=== PATIENT | female | born 1955 | race Caucasian/White ===

== ENCOUNTER 2017-09-08 11:15 | Outpatient (CLI) | payer BC | END 2017-09-08 11:16 | disposition home or self-care (01) | LOC: LAB.WCP 11:15 | PROVIDERS: ATTEND Physician Assistant Medical | DX: R39.15 Urgency of urination (principal) | CPT/HCPCS: 87086 ==

== ENCOUNTER 2017-09-09 10:33 | Outpatient (CLI) | payer BC ==
[2017-09-09 11:05] LABS: BASOPHILS # (AUTO) 0.1 10^3/uL (0.0-0.1); BASOPHILS % (AUTO) 1.4 %; EOSINOPHILS # (AUTO) 0.1 10^3/uL (0.0-0.7); EOSINOPHILS % (AUTO) 2.7 %; HCT - HEMATOCRIT 40.6 % (37.0-47.0); HGB - HEMOGLOBIN 13.8 g/dL (12.0-16.0); LYMPHOCYTES # (AUTO) 1.6 10^3/uL (1.5-3.5); LYMPHOCYTES % (AUTO) 36.9 %; MEAN CORPUSCULAR HEMOGLOBIN 31.3 pg (27.0-31.0); MEAN CORPUSCULAR HGB CONC 34.1 g/dL (32.0-36.0); MEAN PLATELET VOLUME 7.5 fL (7.9-10.8); MONOCYTES # (AUTO) 0.4 10^3/uL (0.0-1.0); MONOCYTES % (AUTO) 10.1 %; NEUTROPHILS # (AUTO) 2.2 10^3/uL (1.5-6.6); NEUTROPHILS % (AUTO) 48.9 %; NUCLEATED RED BLOOD CELLS AUTO 0.1 /100WBC; RED BLOOD COUNT 4.41 10^6/uL (4.20-5.40); UNCORRECTED WHITE BLOOD COUNT 4.4 x10^3/uL; WHITE BLOOD COUNT 4.4 x10^3/uL (4.8-10.8)
[2017-09-09 11:25] LABS: ALBUMIN/GLOBULIN RATIO 1.4 (1.0-2.2); BILIRUBIN,TOTAL 0.6 mg/dL (0.2-1.0); BUN - BLOOD UREA NITROGEN 12 mg/dL (6-20); CALCIUM 9.6 mg/dL (8.5-10.3); CARBON DIOXIDE - CO2 27 mmol/L (21-32); CHLORIDE 103 mmol/L (101-111); CHOLESTEROL 213 mg/dL; CREATININE 0.8 mg/dL (0.4-1.0); GFR - MDRD 73 (>89); GLUCOSE 104 mg/dL (70-100); HDL CHOLESTEROL 70 mg/dL; LDL/HDL RATIO 1.8 (<4.4); SODIUM 139 mmol/L (135-145); TOTAL PROTEIN 7.6 g/dL (6.7-8.2); TRIGLYCERIDES 84 mg/dL; VLDL CHOLESTEROL 17 mg/dL
== END 2017-09-09 10:34 | disposition home or self-care (01) ==
LOC: LAB 10:33
PROVIDERS: ATTEND Physician Assistant Medical
DX: Z00.00 Encounter for general adult medical examination without abnormal findings (principal)
CPT/HCPCS: 36415; 80053; 80061; 84443; 85025

== ENCOUNTER 2017-10-20 12:37 | Outpatient (CLI) | payer BC ==
--- NOTE | 2017-10-21 12:41 | Mammography Report ---
DIGITAL SCREENING MAMMOGRAM: 10/20/2017 CLINICAL INDICATION: A 62-year-old for screening. COMPARISON: 07/2016, 04/2011, 05/2009 TECHNIQUE: Routine CC and MLO projections were obtained of the breasts. FINDINGS: Scattered fibroglandular tissue is present within the breasts. There are no dominant roger s, suspicious microcalcifications, or secondary signs of malignancy. In comparison to the previous st udies, there are no significant changes. ASSESSMENT: NO MAMMOGRAPHIC EVIDENCE OF MALIGNANCY. NO SIGNIFICANT INTERVAL CHANGES. RECOMMENDATION: Screening mammography is recommended annually. BIRADS category 1 - negative. STANDARD QUALIFYING STATEMENTS 1. This examination was reviewed with the aid of Computed-Aided Detection (CAD). 2. A negative or benign imaging report should not delay biopsy if clinically suspicious findings are present. Consider surgical consultation if warranted. More than 5% of cancers are not identified by i maging. 3. Dense breasts may obscure an underlying neoplasm. JOB #: [id number] EXT JOB #:[id number]
== END 2017-10-20 12:38 | disposition home or self-care (01) ==
LOC: DI 12:37
PROVIDERS: ATTEND Family Medicine
DX: Z12.31 Encounter for screening mammogram for malignant neoplasm of breast (principal)
CPT/HCPCS: 77067

== ENCOUNTER 2020-05-23 10:30 | Outpatient (CLI) | payer MEDICARE, OTHER | END 2020-05-23 23:59 | disposition home or self-care (01) | LOC: LAB.R 10:30 | PROVIDERS: ATTEND Family Medicine | DX: R39.9 Unspecified symptoms and signs involving the genitourinary system (principal) | CPT/HCPCS: 87086 ==

== ENCOUNTER 2020-06-05 08:00 | Outpatient (CLI) | payer MEDICARE, OTHER ==
[2020-06-05 18:35] LABS: BILIRUBIN,URINE NEGATIVE (NEGATIVE); GLUCOSE, URINE (UA) NEGATIVE (NEGATIVE); KETONES,URINE (UA) NEGATIVE (NEGATIVE); LEUKOCYTE ESTERASE, URINE NEGATIVE (NEGATIVE); NITRITE,URINE NEGATIVE (NEGATIVE); OCCULT BLOOD,URINE NEGATIVE (NEGATIVE); PROTEIN,URINE NEGATIVE (NEGATIVE); UROBILINOGEN,URINE 0.2 (NORMAL) E.U./dL (NORMAL)
[2020-06-05 18:45] LABS: BACTERIA,URINE None Seen /HPF (None Seen); CLARITY,URINE CLEAR (CLEAR); RBC,URINE None Seen /HPF (0-5); SQUAMOUS EPITHELIAL CELL,UR RARE Squamous (<= Few)
== END 2020-06-05 23:59 | disposition home or self-care (01) ==
LOC: LAB.WCP 08:00
PROVIDERS: ATTEND Physician Assistant Medical
DX: R39.9 Unspecified symptoms and signs involving the genitourinary system (principal); N39.0 Urinary tract infection, site not specified
CPT/HCPCS: 81001; 87086

== ENCOUNTER 2020-06-07 08:05 | Outpatient (CLI) | payer MEDICARE, OTHER ==
[2020-06-07 12:38] LABS: BILIRUBIN,URINE NEGATIVE (NEGATIVE); GLUCOSE, URINE (UA) NEGATIVE (NEGATIVE); KETONES,URINE (UA) NEGATIVE (NEGATIVE); LEUKOCYTE ESTERASE, URINE NEGATIVE (NEGATIVE); NITRITE,URINE NEGATIVE (NEGATIVE); OCCULT BLOOD,URINE NEGATIVE (NEGATIVE); PROTEIN,URINE NEGATIVE (NEGATIVE); UROBILINOGEN,URINE 0.2 (NORMAL) E.U./dL (NORMAL)
[2020-06-07 13:07] LABS: CLARITY,URINE CLEAR (CLEAR)
== END 2020-06-07 23:59 | disposition home or self-care (01) ==
LOC: LAB.WCP 08:05
PROVIDERS: ATTEND Family Medicine
DX: R39.9 Unspecified symptoms and signs involving the genitourinary system (principal); R35.0 Frequency of micturition
CPT/HCPCS: 81001; 81003; 87086

== ENCOUNTER 2020-07-12 08:00 | Outpatient (CLI) | payer MEDICARE, OTHER ==
[2020-07-12 15:24] LABS: BILIRUBIN,URINE NEGATIVE (NEGATIVE); GLUCOSE, URINE (UA) NEGATIVE (NEGATIVE); KETONES,URINE (UA) NEGATIVE (NEGATIVE); LEUKOCYTE ESTERASE, URINE NEGATIVE (NEGATIVE); NITRITE,URINE NEGATIVE (NEGATIVE); OCCULT BLOOD,URINE NEGATIVE (NEGATIVE); PROTEIN,URINE NEGATIVE (NEGATIVE); UROBILINOGEN,URINE 0.2 (NORMAL) E.U./dL (NORMAL)
[2020-07-12 15:36] LABS: CLARITY,URINE CLEAR (CLEAR)
[2020-07-12 15:39] LABS: BACTERIA,URINE None Seen /HPF (None Seen); RBC,URINE None Seen /HPF (0-5); SQUAMOUS EPITHELIAL CELL,UR RARE Squamous (<= Few)
== END 2020-07-12 23:59 | disposition home or self-care (01) ==
LOC: LAB.R 08:00
PROVIDERS: ATTEND Physician Assistant
DX: R39.9 Unspecified symptoms and signs involving the genitourinary system (principal); R35.0 Frequency of micturition
CPT/HCPCS: 81001; 87086

== ENCOUNTER 2020-07-12 09:49 | Outpatient (CLI) | payer MEDICARE, OTHER ==
[2020-07-12 10:09] LABS: BASOPHILS # (AUTO) 0.1 10^3/uL (0.0-0.1); BASOPHILS % (AUTO) 1.7 %; EOSINOPHILS # (AUTO) 0.2 10^3/uL (0.0-0.7); HGB - HEMOGLOBIN 10.7 g/dL (12.0-16.0); LYMPHOCYTES # (AUTO) 1.5 10^3/uL (1.5-3.5); LYMPHOCYTES % (AUTO) 37.9 %; MEAN CORPUSCULAR HEMOGLOBIN 23.5 pg (27.0-31.0); MEAN CORPUSCULAR HGB CONC 29.6 g/dL (32.0-36.0); MEAN CORPUSCULAR VOLUME 79.6 fL (81.0-99.0); MEAN PLATELET VOLUME 9.8 fL (7.9-10.8); MONOCYTES # (AUTO) 0.3 10^3/uL (0.0-1.0); NEUTROPHILS # (AUTO) 1.9 10^3/uL (1.5-6.6); NEUTROPHILS % (AUTO) 48.4 %; PLT - PLATELET COUNT 240 10^3/uL (130-450); RED BLOOD COUNT 4.55 10^6/uL (4.20-5.40); RED CELL DISTRIBUTION WIDTH 15.2 % (12.0-15.0)
[2020-07-12 10:26] LABS: ALBUMIN 4.5 g/dL (3.2-5.5); ALBUMIN/GLOBULIN RATIO 1.3 (1.0-2.2); ALKALINE PHOSPHATASE 64 IU/L (42-121); ALT ALANINE AMINOTRANSFERASE 17 IU/L (10-60); AST ASPARTATE AMINOTRANSFERASE 23 IU/L (10-42); BILIRUBIN,TOTAL 0.4 mg/dL (0.2-1.0); BUN - BLOOD UREA NITROGEN 21 mg/dL (6-20); CARBON DIOXIDE - CO2 25 mmol/L (21-32); CHLORIDE 103 mmol/L (101-111); CHOL/HDL RATIO 3.4 (<4.4); CHOLESTEROL 197 mg/dL; CREATININE 0.9 mg/dL (0.4-1.0); GLUCOSE 102 mg/dL (70-100); HDL CHOLESTEROL 58 mg/dL; LDL CHOLESTEROL,CALCULATED 121 mg/dL; LDL/HDL RATIO 2.1 (<4.4); SODIUM 138 mmol/L (135-145); TOTAL PROTEIN 7.9 g/dL (6.7-8.2); VLDL CHOLESTEROL 18 mg/dL
[2020-07-12 10:32] LABS: HB2 TOTAL 10.9 g/dL; HEMOGLOBIN A1C 0.47 g/dL; HEMOGLOBIN A1C % 6.1 % (4.6-6.2)
== END 2020-07-12 09:50 | disposition home or self-care (01) ==
LOC: LAB 09:49
PROVIDERS: ATTEND Physician Assistant
DX: E03.9 Hypothyroidism, unspecified (principal); Z79.899 Other long term (current) drug therapy; R39.9 Unspecified symptoms and signs involving the genitourinary system; R35.0 Frequency of micturition
CPT/HCPCS: 36415; 80053; 80061; 81001; 83036; 83721; 84443; 85025; 87086

== ENCOUNTER 2020-07-19 16:14 | Outpatient (CLI) | payer MEDICARE, OTHER ==
[2020-07-19 18:44] LABS: BASOPHILS % (AUTO) 0.6 %; EOSINOPHILS % (AUTO) 0.5 %; HGB - HEMOGLOBIN 9.8 g/dL (12.0-16.0); LYMPHOCYTES # (AUTO) 1.8 10^3/uL (1.5-3.5); LYMPHOCYTES % (AUTO) 27.7 %; MEAN CORPUSCULAR HEMOGLOBIN 23.2 pg (27.0-31.0); MEAN CORPUSCULAR HGB CONC 29.6 g/dL (32.0-36.0); MEAN CORPUSCULAR VOLUME 78.3 fL (81.0-99.0); MEAN PLATELET VOLUME 10.1 fL (7.9-10.8); MONOCYTES # (AUTO) 0.5 10^3/uL (0.0-1.0); MONOCYTES % (AUTO) 7.3 %; NEUTROPHILS # (AUTO) 4.1 10^3/uL (1.5-6.6); NEUTROPHILS % (AUTO) 63.6 %; PLT - PLATELET COUNT 283 10^3/uL (130-450); RED BLOOD COUNT 4.23 10^6/uL (4.20-5.40); RED CELL DISTRIBUTION WIDTH 15.3 % (12.0-15.0); WHITE BLOOD COUNT 6.5 x10^3/uL (4.8-10.8)
[2020-07-19 19:02] LABS: % IRON SATURATION 3 % (20-50); IRON 13 ug/dL (28-170); TOTAL IRON BINDING CAPACITY 493 ug/dL (250-450); TRANSFERRIN 352 mg/dL (192-382)
[2020-07-19 19:14] LABS: FERRITIN 5.6 ng/mL (11.0-306.8)
== END 2020-07-19 23:59 | disposition home or self-care (01) ==
LOC: LAB.WCP 16:14
PROVIDERS: ATTEND Nurse Practitioner Family
DX: D64.9 Anemia, unspecified (principal)
CPT/HCPCS: 36415; 82607; 82728; 82746; 83540; 84466; 85025; 85045

== ENCOUNTER 2020-12-29 16:33 | Outpatient (CLI) | payer MEDICARE, OTHER | END 2020-12-29 16:34 | disposition home or self-care (01) | LOC: COV 16:33 | PROVIDERS: ATTEND Family Medicine | DX: R07.0 Pain in throat (principal); R19.7 Diarrhea, unspecified; R09.81 Nasal congestion; Z20.822 Contact with and (suspected) exposure to COVID-19 ==

== ENCOUNTER 2020-12-30 06:21 | Emergency (ER) | payer MEDICARE, OTHER ==
[2020-12-30 06:45] LABS: RAPID STREP SCREEN Negative (Negative)
[2020-12-30] MEDS ORDERED: DEXAMETHASONE 10 MG/ML VIAL PO STA (07:28)
[2020-12-30] MEDS ORDERED: CHERRY SYRUP 10 ML UDC PO ONE (07:28)
--- NOTE | 2020-12-30 07:31 | ED Physician Documentation ---
PD HPI HEENT - Stated complaint Stated Complaint: THROAT PX/SOA - Chief complaint Chief Complaint: Heent - History obtained from History obtained from: Patient - History of Present Illness Timing - onset: How many days ago (5) Timing - duration: Days (5) Timing - details: Gradual onset, Still present Location: Right ear, Throat Improves: Medication Worsens: Swalllowing Associated symptoms: Congestion, Rhinorrhea, Swollen nodes, Cough Similar symptoms before: Diagnosis (strep) Recently seen: Other (had covid test done yesterday) - Additional information Additional information: 65-year-old female with a history of thyroid disease and anxiety has developed a sore throat muffled hearing in the right ear with some pain associated with it fullness and she has now developed a cough as well. She has had a prior incident of hearing loss in the right ear resulting from the use of a beta- sera and had rescue of her hearing with high-dose steroid. The patient was concerned about the possibility of Covid and she had a Covid test done yesterday does not know the result. She indicates that she has been very conscientious about masking when she is out and she does not going to public places. She is worried about the swimming pool she was in an hotel up in [place] where she had the swimming pool with her daughters and a family had been in there previously. Review of Systems Constitutional: denies: Fever Eyes: denies: Decreased vision Ears: reports: Ear pain, Tinnitus/ringing. denies: Drainage/discharge Nose: reports: Rhinorrhea / runny nose, Congestion Throat: reports: Sore throat Cardiac: denies: Chest pain / pressure, Palpitations Respiratory: reports: Cough. 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 AD TAKER: None : None HEENT: None Psych: Anxiety Musculoskeletal: Chronic back pain Derm: None - Past Surgical History Past Surgical History: Yes /TELEPHONE AD TAKER: Hysterectomy - Present Medications Home Medications: Ambulatory Orders Medication Instructions Recorded Confirmed Amox/Clav 875/125 [Augmentin] 1 each PO Q12H #20 tab 02/06/21 - Allergies Allergies/Adverse Reactions: Allergies Allergy/AdvReac Type Severity Reaction Status Date / Time Beta-Blockers Allergy Severe lost Verified 04/16/13 19:39 (Beta-Adrenergic Bloc hearing Sulfa (Sulfonamide Allergy Severe Hives Verified 04/16/13 19:38 Antibiotics) - Social History Does the pt smoke?: No Smoking Status: Never smoker Does the pt drink ETOH?: Yes Does the pt have substance abuse?: No - Immunizations Immunizations are current?: Yes - POLST Patient has POLST: No PD ED PE NORMAL - Vitals Vital signs reviewed: Yes (Tachycardic and hypertensive) - General General: Alert and oriented X 3, No acute distress, Well developed/nourished - HEENT HEENT: Atraumatic, PERRL, EOMI, Other (The right TM is mildly erythematous with distortion of the landmarks the left is clear the pharynx is with 1+ tonsils with crypts with minimal exudate.) - Neck Neck: Supple, no meningeal sign, No bony TTP - Cardiac Cardiac: RRR, No murmur - Respiratory Respiratory: No respiratory distress, Clear bilaterally - Abdomen Abdomen: Soft, Non tender - Back Back: No CVA TTP, No spinal TTP - Derm Derm: Normal color, Warm and dry, No rash - Extremities Extremities: No deformity, No edema - Neuro Neuro: Alert and oriented X 3, office support 2-12 intact, No motor deficit, No sensory deficit, Normal speech Eye Opening: Spontaneous Motor: Obeys Commands Verbal: Oriented GCS Score: 15 - Psych Psych: Normal mood, Normal affect Results - Vitals Vitals: Vital Signs - 24 hr 12/30/20 12/30/20 06:29 06:47 Temperature 36.9 C Heart Rate 110 H Respiratory 18 16 Rate Blood Pressure 162/119 H O2 Saturation 98 Oxygen O2 Source Room air - Labs Labs: Laboratory Tests 12/30/20 06:30 Group A Strep Rapid Negative PD MEDICAL DECISION MAKING - ED course Complexity details: considered differential, d/w patient ED course: 65-year-old female with a cough and sore throat is a negative rapid strep she does have cryptic exudative tonsils and a right otitis. She is administered dexamethasone 10 mg orally here in the emergency department we will place her on some Augmentin as an outpatient. Her Covid test is pending. Departure - Departure Disposition: 01 Home, Self Care Clinical Impression: Tonsillitis Otitis media Qualifiers: Otitis media type: suppurative Chronicity: acute Laterality: right Recurrence: not specified as recurrent Spontaneous tympanic membrane rupture: without spontaneous rupture Qualified Code(s): H66.001 - Acute suppurative otitis media without spontaneous rupture of ear drum, right ear Condition: Stable Instructions: ED Otitis Media Acute Adult Follow-Up: Angelica Yanes ARNP, NATIONAL [employer]ION RECRUITER-[facility] [Primary Care Provider] - Prescriptions: Amox/Clav 875/125 [Augmentin] 1 each PO Q12H #20 tab
[2020-12-30 07:52] VITALS: BP 136/68
== END 2020-12-30 07:52 | disposition home or self-care (01) ==
LOC: ED 06:21
DX: J03.90 Acute tonsillitis, unspecified (principal); H66.001 Acute suppurative otitis media without spontaneous rupture of ear drum, right ear
CPT/HCPCS: 87070; 87430; 99283; 99284; A9270

== ENCOUNTER 2021-01-13 13:00 | Outpatient (CLI) | payer MEDICARE, OTHER | END 2021-01-13 13:01 | disposition home or self-care (01) | LOC: LAB 13:00 | PROVIDERS: ATTEND Family Medicine | DX: Z01.84 Encounter for antibody response examination (principal); Z20.822 Contact with and (suspected) exposure to COVID-19 | CPT/HCPCS: 86769 ==

== ENCOUNTER 2021-03-29 12:07 | Outpatient (CLI) | payer MEDICARE, OTHER ==
[2021-03-29 19:08] LABS: ALBUMIN 4.4 g/dL (3.2-5.5); ALBUMIN/GLOBULIN RATIO 1.5 (1.0-2.2); BILIRUBIN,TOTAL 0.6 mg/dL (0.2-1.0); CREATININE 0.9 mg/dL (0.4-1.0); POTASSIUM 4.1 mmol/L (3.5-5.0); TOTAL PROTEIN 7.4 g/dL (6.7-8.2)
== END 2021-03-29 23:59 | disposition home or self-care (01) ==
LOC: LAB.WCP 12:07
PROVIDERS: ATTEND Family Medicine
DX: B37.0 Candidal stomatitis (principal)
CPT/HCPCS: 36415; 80053

== ENCOUNTER 2021-04-14 07:55 | Emergency (ER) | payer MEDICARE, OTHER ==
--- OUTSIDE RECORDS SUMMARY | 2021-04-14 07:59 | EXTERNAL MEDICAL SUMMARY RPT | Continuity of Care Document ---
:1955 Demographics Phone Unavailable Preferred Language Uzbek Marital Status Unknown Mu-Ism Affiliation Unknown Race Unknown Ethnic Group Unknown Author Organization [place] Address [address] [phone] Phone Care Team Providers Name Role Phone Teddy Troy Unavailable Unavailable Problems date description facility [id number] Iron deficiency anemia, unspecified [facility]
--- OUTSIDE RECORDS SUMMARY | 2021-04-14 08:18 | EXTERNAL MEDICAL SUMMARY RPT | Continuity of Care Document ---
:1955 Demographics Phone Unavailable Preferred Language Hebrew Marital Status Unknown Anabaptism Affiliation Unknown Race Unknown Ethnic Group Unknown Author Organization [place] Address [address] [phone] Phone Care Team Providers Name Role Phone Teddy Troy Unavailable Unavailable Problems date description facility [id number] Iron deficiency anemia, unspecified Is [facility]
[2021-04-14 08:38] LABS: BILIRUBIN,URINE NEGATIVE (NEGATIVE); GLUCOSE, URINE (UA) NEGATIVE (NEGATIVE); KETONES,URINE (UA) NEGATIVE (NEGATIVE); LEUKOCYTE ESTERASE, URINE TRACE (NEGATIVE); NITRITE,URINE NEGATIVE (NEGATIVE); OCCULT BLOOD,URINE NEGATIVE (NEGATIVE); PROTEIN,URINE NEGATIVE (NEGATIVE); UROBILINOGEN,URINE 0.2 (NORMAL) E.U./dL (NORMAL)
[2021-04-14 08:41] LABS: BACTERIA,URINE None Seen /HPF (None Seen); CLARITY,URINE CLEAR (CLEAR); RBC,URINE None Seen /HPF (0-5); SQUAMOUS EPITHELIAL CELL,UR RARE Squamous (<= Few); WBC,URINE 0-3 /HPF (0-5)
--- NOTE | 2021-04-14 08:43 | ED Physician Documentation ---
History of Present Illness - Stated complaint Stated Complaint: RT SIDE PX - Chief complaint Chief Complaint: General - History obtained from History obtained from: Patient - Additonal information Additional information: 65-year-old woman presents with right Lateral lower rib pain and back pain that is nonradiating gradual in onset after mowing her yard 2 days ago and bumping up and down. That night she noticed a cracking sensation to her right ribs and bruising to her right flank. Pain is mild, constant, aching, worse with cough. Nonpleuritic. No urinary symptoms. 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 : None HEENT: None Psych: Anxiety Musculoskeletal: Osteoporosis, Chronic back pain Derm: None Other Past Medical History: cervical cancer - Past Surgical History Past Surgical History: Yes /LOGISTICS PROJECT MANAGER: Hysterectomy - Present Medications Home Medications: Ambulatory Orders Medication Instructions Recorded Confirmed LORazepam [Ativan] 0.5 mg PO BID 04/14/21 04/14/21 - Allergies Allergies/Adverse Reactions: Allergies Allergy/AdvReac Type Severity Reaction Status Date / Time Beta-Blockers Allergy Severe lost Verified 04/14/21 07:57 (Beta-Adrenergic Bloc hearing Sulfa (Sulfonamide Allergy Severe Hives Verified 04/14/21 07:57 Antibiotics) cephalexin Allergy Unknown Verified 04/14/21 07:57 sulfamethoxazole Allergy Unknown Verified 04/14/21 07:57 [From Bactrim] trimethoprim [From Bactrim] Allergy Unknown Verified 04/14/21 07:57 - Social History Does the pt smoke?: No Smoking Status: Never smoker Does the pt drink ETOH?: Yes Does the pt have substance abuse?: No - Immunizations Immunizations are current?: Yes - POLST Patient has POLST: No PD ED PE NORMAL - Vitals Vital signs reviewed: Yes - General General: Alert and oriented X 3, No acute distress, Well developed/nourished - HEENT HEENT: Atraumatic, PERRL, EOMI - Neck Neck: Supple, no meningeal sign - Cardiac Cardiac: RRR - Respiratory Respiratory: No respiratory distress, Clear bilaterally - Back Back: Other (Right lateral lower rib cage and posterior rib trommel tender to palpation with 2 cm diameter area of ecchymosis) Results - Vitals Vitals: Vital Signs - 24 hr 04/14/21 07:58 Temperature 36.5 C Heart Rate 68 Respiratory 16 Rate Blood Pressure 141/85 H O2 Saturation 99 Oxygen O2 Source Room air - Labs Labs: Laboratory Tests 04/14/21 08:25 Urine Color YELLOW Urine Clarity CLEAR Urine pH 6.0 Ur Specific [place]als 1.020 Urine Protein NEGATIVE Urine Glucose (UA) NEGATIVE Urine Ketones NEGATIVE Urine Occult Blood NEGATIVE Urine Nitrite NEGATIVE Urine Bilirubin NEGATIVE Urine Urobilinogen 0.2 (NORMAL) Ur Leukocyte Esterase TRACE H Urine RBC None Seen Urine WBC 0-3 Ur Squamous Epith Cells RARE Squamous Urine Bacteria None Seen Urine Culture Comments INDICATED PD MEDICAL DECISION MAKING - ED course ED course: 65-year-old woman presents with bruise to the right rib cage after a robust round of yard work 2 days ago. She does not have apparent fracture on chest x- ray and is able to take a full deep breath and give a robust cough without difficulty. Advised patient to take NSAIDs as needed for pain. Strict return precautions given. She will follow up with her primary. Departure - Departure Disposition: 01 Home, Self Care Clinical Impression: Rib contusion, Ecchymosis Condition: Good Instructions: ED Contusion Rib Comments: You are seen in the emergency department for rib pain. You do not appear to have a break in the ribs. Please follow-up with your primary doctor this week. Take ibuprofen 600 mg as needed every 6 hours for pain.Return to emergency department if you experience any new or worsening symptoms or have other concerns
[2021-04-14] MEDS ORDERED: KETOROLAC 30 MG/ML VIAL IM STA (08:45)
--- NOTE | 2021-04-14 08:53 | XRAY Report ---
PROCEDURE: Chest 2 View X-Ray INDICATIONS: R lower lateral rib pain with bruise TECHNIQUE: 2 view(s) of the chest. COMPARISON: None. FINDINGS: Surgical changes and devices: None. Lungs and pleura: No pleural effusions or pneumothorax. Lungs are clear. Mediastinum: Mediastinal contours are normal. Heart size is normal. There is a small hiatal hernia . Bones and chest wall: The area of rib pain is marked with a BB marker. At this site, no focal rib ab normality can be seen. No suspicious bony abnormalities. Soft tissues appear unremarkable. IMPRESSION: No displaced rib fracture can be seen. No pneumothorax is seen. If clinically appropriate, a dedicated rib plain film series or dedicated CT could be considered for further evaluation. Reviewed by: Wilberto Mandujano MD on 04/14/2021 7:52 AM MT Approved by: Wilberto Mandujano MD on 04/14/2021 7:52 AM MT Station ID: [id number]
[2021-04-14 09:26] VITALS: BP 131/87
== END 2021-04-14 09:05 | disposition home or self-care (01) ==
LOC: ED 07:55
DX: S20.211A Contusion of right front wall of thorax, initial encounter (principal); X50.0XXA Overexertion from strenuous movement or load, initial encounter; Y93.H2 Activity, gardening and landscaping; Y92.096 Garden or yard of other non-institutional residence as the place of occurrence of the external cause
CPT/HCPCS: 81001; 87086; 99282; 99284

== ENCOUNTER 2021-07-11 13:33 | Outpatient (CLI) | payer MEDICARE, OTHER ==
[2021-07-11 17:57] LABS: BASOPHILS # (AUTO) 0.1 10^3/uL (0.0-0.1); BASOPHILS % (AUTO) 1.3 %; EOSINOPHILS # (AUTO) 0.2 10^3/uL (0.0-0.7); EOSINOPHILS % (AUTO) 5.3 %; HCT - HEMATOCRIT 42.2 % (37.0-47.0); HGB - HEMOGLOBIN 13.5 g/dL (12.0-16.0); LYMPHOCYTES # (AUTO) 1.4 10^3/uL (1.5-3.5); MEAN CORPUSCULAR VOLUME 96.8 fL (81.0-99.0); MEAN PLATELET VOLUME 10.1 fL (7.9-10.8); MONOCYTES # (AUTO) 0.4 10^3/uL (0.0-1.0); NEUTROPHILS # (AUTO) 1.9 10^3/uL (1.5-6.6); NEUTROPHILS % (AUTO) 48.1 %; PLT - PLATELET COUNT 224 10^3/uL (130-450); RED BLOOD COUNT 4.36 10^6/uL (4.20-5.40); RED CELL DISTRIBUTION WIDTH 12.1 % (12.0-15.0)
== END 2021-07-11 23:59 | disposition home or self-care (01) ==
LOC: LAB.WCP 13:33
PROVIDERS: ATTEND Family Medicine
DX: D64.9 Anemia, unspecified (principal)
CPT/HCPCS: 36415; 85025

== ENCOUNTER 2021-12-03 10:46 | Outpatient (CLI) | payer MEDICARE, OTHER ==
--- NOTE | 2021-12-03 15:08 | DEXA Report ---
PROCEDURE: Dexa Spine and/or Hip INDICATIONS: OSTEOPOROSIS TECHNIQUE: Dual energy x-ray absorptiometry (DXA) was performed on a [employer] System. Regions measur ed are the AP Spine, femoral neck, and if needed forearm. COMPARISON: None. FINDINGS: Lumbar Spine: Bone Mineral Density 0.820 g/cm/cm,T score -3.0, compared to -3.3 Left Hip: Bone Mineral Density 0.688 g/cm/cm,T score -2.5, compared to -2.2 Left Femoral Neck: Bone Mineral Density 0.670 g/cm/cm, T score -2.6, compared to -2.7 (T score greater or equal to -1.0: NORMAL) (T score from -1.1 to -2.4: OSTEOPENIA) (T score less than or equal to -2.5 to: OSTEOPOROSIS) Impression: 1. Osteoporosis slightly improved in the lumbar spine and femoral neck. 2. Mild progressive osteoporosis in the left hip previously osteopenic. Patients with diagnosis of osteoporosis or osteopenia should have regular bone mineral density assess ment. For those eligible for Medicare, routine testing is allowed once every 2 years. Testing frequ ency can be increased for patients who have rapidly progressing disease or for those who are receivin g medical therapy to restore bone mass. Reviewed by: Medina Cheng MD on 12/03/2021 3:07 PM PST Approved by: Medina Cheng MD on 12/03/2021 3:07 PM PST Station ID: [id number]
== END 2021-12-03 10:47 | disposition home or self-care (01) ==
LOC: DI 10:46
PROVIDERS: ATTEND Family Medicine
DX: M81.0 Age-related osteoporosis without current pathological fracture (principal)

== ENCOUNTER 2022-04-05 09:48 | Outpatient (CLI) | payer MEDICARE, OTHER ==
[2022-04-05 10:05] LABS: BASOPHILS # (AUTO) 0.1 10^3/uL (0.0-0.1); BASOPHILS % (AUTO) 1.2 %; EOSINOPHILS # (AUTO) 0.1 10^3/uL (0.0-0.7); EOSINOPHILS % (AUTO) 2.9 %; HCT - HEMATOCRIT 35.4 % (37.0-47.0); LYMPHOCYTES # (AUTO) 1.8 10^3/uL (1.5-3.5); LYMPHOCYTES % (AUTO) 43.8 %; MEAN CORPUSCULAR HEMOGLOBIN 26.4 pg (27.0-31.0); MEAN CORPUSCULAR HGB CONC 31.1 g/dL (32.0-36.0); MEAN CORPUSCULAR VOLUME 85.1 fL (81.0-99.0); MEAN PLATELET VOLUME 9.1 fL (7.9-10.8); MONOCYTES # (AUTO) 0.4 10^3/uL (0.0-1.0); MONOCYTES % (AUTO) 9.5 %; NEUTROPHILS # (AUTO) 1.8 10^3/uL (1.5-6.6); NEUTROPHILS % (AUTO) 42.4 %; PLT - PLATELET COUNT 268 10^3/uL (130-450); RED BLOOD COUNT 4.16 10^6/uL (4.20-5.40); RED CELL DISTRIBUTION WIDTH 13.6 % (12.0-15.0); WHITE BLOOD COUNT 4.2 x10^3/uL (4.8-10.8)
[2022-04-05 10:23] LABS: ALBUMIN/GLOBULIN RATIO 1.3 (1.0-2.2); BILIRUBIN,TOTAL 0.6 mg/dL (0.2-1.0); CALCIUM 9.2 mg/dL (8.5-10.3); CREATININE 0.8 mg/dL (0.4-1.0); POTASSIUM 3.5 mmol/L (3.5-5.0); TOTAL PROTEIN 7.2 g/dL (6.7-8.2)
[2022-04-05 10:35] LABS: THYROID STIMULATING HORMONE 4.13 uIU/mL (0.34-5.60)
[2022-04-05 10:41] LABS: FERRITIN 4.8 ng/mL (11.0-306.8)
== END 2022-04-05 09:49 | disposition home or self-care (01) ==
LOC: LAB 09:48
PROVIDERS: ATTEND Family Medicine
DX: D64.9 Anemia, unspecified (principal); E03.9 Hypothyroidism, unspecified
CPT/HCPCS: 36415; 80053; 82607; 82728; 83540; 84443; 84466; 85025

== ENCOUNTER 2022-04-10 08:00 | Outpatient (CLI) | payer MEDICARE, OTHER ==
[2022-04-10 13:36] LABS: FECAL OCCULT BLOOD (FIT) NEGATIVE (NEGATIVE)
== END 2022-04-10 23:59 | disposition home or self-care (01) ==
LOC: LAB.N 08:00
PROVIDERS: ATTEND Family Medicine
DX: D64.9 Anemia, unspecified (principal)
CPT/HCPCS: 82274

== ENCOUNTER 2022-08-04 18:15 | Emergency (ER) | payer MEDICARE, OTHER ==
[2022-08-04] MEDS ORDERED: ACETAMINOPHEN/CODEINE 300 MG/30 MG TABLET PO STA (19:05)
--- NOTE | 2022-08-04 19:05 | XRAY Report ---
PROCEDURE: Wrist 4 View LT INDICATIONS: Trauma TECHNIQUE: 4 views of the wrist were acquired. COMPARISON: None FINDINGS: Bones: Diffuse osteopenia. Possible nondisplaced, minimally impacted fracture of the distal left radi al metaphysis. No definite intra-articular extension. Background degenerative changes of the left wri st. Scaphoid view: Scaphoid appears intact. Scapholunate interval is maintained. Soft tissues: No suspicious soft tissue calcifications. IMPRESSION: Diffuse osteopenia. Possible minimally impacted fracture of the distal left radial metaphysis. No def inite intra-articular extension. Recommend immobilization and repeat imaging in 10-14 days. Reviewed by: Josesito Marinelli MD on 08/04/2022 7:03 PM PDT Approved by: Josesito Marinelli MD on 08/04/2022 7:03 PM PDT Station ID: [id number]
--- NOTE | 2022-08-04 19:07 | ED Physician Documentation ---
PD HPI UPPER EXT INJURY - Stated complaint Stated Complaint: WRIST INJURY - Chief complaint Chief Complaint: Trauma Ext - History obtained from History obtained from: Patient - Additonal information Additional information: Right-handed woman was walking on wet logs and slipped and fell on an outstretched which left wrist. She has an isolated left wrist injury. Pain is severe. No other injuries. 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: Other : None HEENT: None Psych: Anxiety Musculoskeletal: Osteoporosis, Chronic back pain Derm: None - Past Surgical History Past Surgical History: Yes /CAR PUSHER: Hysterectomy - Present Medications Home Medications: Ambulatory Orders Medication Instructions Recorded Confirmed LORazepam [Ativan] 0.5 mg PO BID 04/14/21 08/04/22 Acetaminophen with Codeine 1 tab ORAL Q6HR PRN 08/04/22 08/04/22 [Acetaminophen-Cod #3 Tablet] Acetaminophen/Cod 300/30 [Tylenol 1 each PO Q4-6H PRN #15 tablet 08/04/22 #3] - Allergies Allergies/Adverse Reactions: Allergies Allergy/AdvReac Type Severity Reaction Status Date / Time Beta-Blockers Allergy Severe lost Verified 08/04/22 18:28 (Beta-Adrenergic Bloc hearing Sulfa (Sulfonamide Allergy Severe Hives Verified 08/04/22 18:28 Antibiotics) cephalexin Allergy Unknown Verified 08/04/22 18:28 sulfamethoxazole Allergy Unknown Verified 08/04/22 18:28 [From Bactrim] trimethoprim [From Bactrim] Allergy Unknown Verified 08/04/22 18:28 - Social History Does the pt smoke?: No Smoking Status: Never smoker Does the pt drink ETOH?: Yes Does the pt have substance abuse?: No - Immunizations Immunizations are current?: Yes - POLST Patient has POLST: No PD ED PE NORMAL - Vitals Vital signs reviewed: Yes - General General: Alert and oriented X 3, No acute distress - HEENT HEENT: PERRL, EOMI - Neck Neck: Supple, no meningeal sign, No bony TTP, C-Spine cleared by NEXUS criteria - Extremities Extremities: Other (Focally tender over the left distal dorsal wrist without snuffbox tenderness. No deformity but there is some swelling. Unable to range the wrist at all. Normal neurovascular function in the left hand.) - Neuro Neuro: Alert and oriented X 3, Normal speech - Psych Psych: Normal mood, Normal affect Results - Vitals Vitals: Vital Signs - 24 hr 08/04/22 08/04/22 18:23 19:32 Temperature 36.1 C L 36.3 C L Heart Rate 91 88 Respiratory 18 17 Rate Blood Pressure 141/120 H 132/91 H O2 Saturation 99 99 Oxygen O2 Source Room air - Rads (name of study) 4 view x-ray of left wrist demonstrates a minimally impacted fracture of the left distal radius in the setting of osteopenia. Radiology: EMP read contemporaneously Procedures - Splint (location) L wrist Splint applied by: Tech Type of splint: Fiberglass, Short arm, Volar cock up Other: Patient tolerated well, No complications, Neurovascular intact Departure - Departure Disposition: 01 Home, Self Care Clinical Impression: Distal radius fracture Condition: Good Record reviewed to determine appropriate education?: Yes Instructions: ED Fx Forearm Radius Ulna No Redu Requ Follow-Up: [facility] [Provider Group] Prescriptions: Acetaminophen/Cod 300/30 [Tylenol #3] 1 each PO Q4-6H PRN #15 tablet PRN Reason: Pain Comments: I sent your prescription electronically to [facility]. Return for new or worsening symptoms. Reasonable to follow-up with the orthopedic brace maker in a week to at this week and a half for recheck. Possible casting. Keep the splint on and dry until then. I am prescribing a short course of narcotic pain medication for you. These are potentially dangerous and addictive medications that should be used carefully. These medications may constipate you. Take an auab-mfh-epjdykt stool softener (docusate) twice daily with plenty of water while taking these medications. If you go 24 hours without a bowel movement, take chji-eud-wdefoid miralax, per package instructions. Do not drink or drive while taking these medications. If you received narcotic or sedating medications while in the emergency department, do not drive for 24 hours. Store this medication in a safe, secure place and out of reach of children. It is a violation of federal law to give or sell this medication to another person or to use in a manner other than prescribed. The ED will not refill narcotic prescriptions, including prescriptions lost or stolen. To dispose of unwanted medications: 1. [facility] at [address] in [place] has a medication drop box. They accept prescription medications (in pill form) Friday through Friday 9:00 a.m. to 5:00 p.m. 2. The [facility] accepts prescription medications (in pill form only) for disposal year round. Call for more information. 3. Contact the [facility] for the next [facility] sponsored prescription drug collection event. , [phone], or [phone]; Note that many narcotic pain relievers also contain Tylenol/acetaminophen. Please ensure that your total dose of acetaminophen from all sources does not exceed 3 g (3000 mg) per day. Discharge Date/Time: 08/04/22 19:32
[2022-08-04 19:33] VITALS: BP 132/91
== END 2022-08-04 19:32 | disposition home or self-care (01) ==
LOC: ED 18:15
DX: S52.502A Unspecified fracture of the lower end of left radius, initial encounter for closed fracture (principal); W01.0XXA Fall on same level from slipping, tripping and stumbling without subsequent striking against object, initial encounter; Y93.01 Activity, walking, marching and hiking
CPT/HCPCS: 29125; 73110; 99282; A9270

== ENCOUNTER 2022-08-26 08:00 | Outpatient (CLI) | payer MEDICARE, OTHER ==
--- NOTE | 2022-08-26 11:37 | XRAY Report ---
PROCEDURE: Wrist 3 View LT INDICATIONS: WRIST FX TECHNIQUE: 3 views of the wrist were acquired. COMPARISON: 08/04/2022 FINDINGS: Diffuse osteopenia interval since the prior exam, likely due to disuse. Previously described impacted fracture of the left distal radius is more sclerotic overall however there is still some associated lucency indicating that the fracture is not entirely healed. No additional fracture identified. IMPRESSION: Increased sclerosis of the impacted left distal radial fracture which is likely indicative of some in terval healing, however there is still associated lucency in the fracture plane indicating that heali ng is not complete. Disuse osteopenia worsened in the interval. Reviewed by: Jose Knowles MD on 08/26/2022 11:36 AM PDT Approved by: Jose Knowles MD on 08/26/2022 11:36 AM PDT Station ID: [id number]
== END 2022-08-26 23:59 | disposition home or self-care (01) ==
LOC: DI.WOS 08:00
PROVIDERS: ATTEND Physician Assistant
DX: S52.552D Other extraarticular fracture of lower end of left radius, subsequent encounter for closed fracture with routine healing (principal); M85.88 Other specified disorders of bone density and structure, other site

== ENCOUNTER 2022-09-11 13:28 | Outpatient (CLI) | payer MEDICARE, OTHER ==
[2022-09-11 13:43] LABS: ABSOLUTE RETICS # AUTO 0.044 10^6/uL (0.020-0.110); BASOPHILS # (AUTO) 0.1 10^3/uL (0.0-0.1); BASOPHILS % (AUTO) 0.7 %; EOSINOPHILS # (AUTO) 0.2 10^3/uL (0.0-0.7); EOSINOPHILS % (AUTO) 2.1 %; HCT - HEMATOCRIT 36.9 % (37.0-47.0); HGB - HEMOGLOBIN 11.6 g/dL (12.0-16.0); LYMPHOCYTES # (AUTO) 2.1 10^3/uL (1.5-3.5); LYMPHOCYTES % (AUTO) 26.8 %; MEAN CORPUSCULAR HGB CONC 31.4 g/dL (32.0-36.0); MEAN CORPUSCULAR VOLUME 92.3 fL (81.0-99.0); MEAN PLATELET VOLUME 9.4 fL (7.9-10.8); MONOCYTES # (AUTO) 0.6 10^3/uL (0.0-1.0); MONOCYTES % (AUTO) 8.4 %; NEUTROPHILS # (AUTO) 4.7 10^3/uL (1.5-6.6); NEUTROPHILS % (AUTO) 61.9 %; PLT - PLATELET COUNT 245 10^3/uL (130-450); RED CELL DISTRIBUTION WIDTH 13.8 % (12.0-15.0); WHITE BLOOD COUNT 7.7 x10^3/uL (4.8-10.8)
[2022-09-11 14:08] LABS: % IRON SATURATION 45 % (20-50); IRON 200 ug/dL (28-170); TOTAL IRON BINDING CAPACITY 444 ug/dL (250-450); TRANSFERRIN 317 mg/dL (192-382)
== END 2022-09-11 13:29 | disposition home or self-care (01) ==
LOC: LAB 13:28
PROVIDERS: ATTEND Family Medicine
DX: D64.9 Anemia, unspecified (principal); G89.29 Other chronic pain; R07.81 Pleurodynia; M51.86 Other intervertebral disc disorders, lumbar region; Z79.891 Long term (current) use of opiate analgesic
CPT/HCPCS: 36415; 82728; 83540; 84466; 85025; 85045

== ENCOUNTER 2022-09-17 08:00 | Outpatient (CLI) | payer MEDICARE, OTHER ==
--- NOTE | 2022-09-17 12:59 | XRAY Report ---
PROCEDURE: Wrist 3 View LT INDICATIONS: LEFT WRIST FRACTURE TECHNIQUE: 3 views of the wrist were acquired. COMPARISON: 08/26/2022 FINDINGS: Bones: Decreased mineralization. Healing, nondisplaced transverse fracture through the distal radial metaphysis is seen by line of sclerosis only. No fracture plane. Tiny ulnar styloid avulsion. Radioca rpal alignment remains normal. No suspicious bony lesions. Soft tissues: No suspicious soft tissue calcifications. IMPRESSION: Expected appearance of healing transverse distal radius fracture. Reviewed by: Yulia El MD on 09/17/2022 11:58 AM MT Approved by: Yulia El MD on 09/17/2022 11:58 AM MT Station ID: [id number]
== END 2022-09-17 23:59 | disposition home or self-care (01) ==
LOC: DI.WOS 08:00
PROVIDERS: ATTEND Orthopaedic Surgery
DX: S52.552D Other extraarticular fracture of lower end of left radius, subsequent encounter for closed fracture with routine healing (principal)

== ENCOUNTER 2023-01-09 11:33 | Outpatient (CLI) | payer OTHER, MEDICARE | END 2023-01-09 23:59 | disposition critical access hospital (66) | LOC: EMS 11:33 | DX: R07.89 Other chest pain (principal); S80.212A Abrasion, left knee, initial encounter; M25.461 Effusion, right knee; V43.52XA Car driver injured in collision with other type car in traffic accident, initial encounter; Y92.414 Local residential or business street as the place of occurrence of the external cause | CPT/HCPCS: A0425; A0429 ==

== ENCOUNTER 2023-01-09 12:25 | Emergency (ER) | payer OTHER, MEDICARE ==
[2023-01-09] MEDS ORDERED: KETOROLAC 60 MG/2 ML VIAL IM STA (12:48)
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
[2023-01-09 19:13] VITALS: BP 129/79
== END 2023-01-09 15:50 | disposition home or self-care (01) ==
LOC: EDUNIT# → ED 12:25
DX: S20.219A Contusion of unspecified front wall of thorax, initial encounter (principal); S16.1XXA Strain of muscle, fascia and tendon at neck level, initial encounter; S80.02XA Contusion of left knee, initial encounter; V43.52XA Car driver injured in collision with other type car in traffic accident, initial encounter; Y93.89 Activity, other specified; Y92.414 Local residential or business street as the place of occurrence of the external cause
CPT/HCPCS: 96372; 99284

== ENCOUNTER 2023-02-26 09:07 | Emergency (ER) | payer MEDICARE, OTHER ==
[2023-02-26 11:58] VITALS: BP 174/115
[2023-02-26] MEDS ORDERED: SODIUM CHLORIDE 0.9% 1,000 ML IV STA (12:02)
[2023-02-26 12:14] LABS: BASOPHILS # (AUTO) 0.1 10^3/uL (0.0-0.1); BASOPHILS % (AUTO) 0.9 %; EOSINOPHILS # (AUTO) 0.1 10^3/uL (0.0-0.7); EOSINOPHILS % (AUTO) 1.5 %; HCT - HEMATOCRIT 38.5 % (37.0-47.0); HGB - HEMOGLOBIN 11.6 g/dL (12.0-16.0); LYMPHOCYTES # (AUTO) 2.1 10^3/uL (1.5-3.5); LYMPHOCYTES % (AUTO) 30.5 %; MEAN CORPUSCULAR HEMOGLOBIN 25.2 pg (27.0-31.0); MEAN CORPUSCULAR HGB CONC 30.1 g/dL (32.0-36.0); MEAN CORPUSCULAR VOLUME 83.7 fL (81.0-99.0); MEAN PLATELET VOLUME 8.4 fL (7.9-10.8); MONOCYTES # (AUTO) 0.7 10^3/uL (0.0-1.0); MONOCYTES % (AUTO) 9.6 %; NEUTROPHILS # (AUTO) 3.9 10^3/uL (1.5-6.6); NEUTROPHILS % (AUTO) 57.1 %; PLT - PLATELET COUNT 348 10^3/uL (130-450); RED CELL DISTRIBUTION WIDTH 15.1 % (12.0-15.0); WHITE BLOOD COUNT 6.8 x10^3/uL (4.8-10.8)
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
[2023-02-26 12:52] LABS: ALBUMIN 3.7 g/dL (3.2-5.5); ALBUMIN/GLOBULIN RATIO 1.2 (1.0-2.2); BILIRUBIN,TOTAL 0.7 mg/dL (0.2-1.0); CREATININE 0.9 mg/dL (0.4-1.0); POTASSIUM 3.5 mmol/L (3.5-5.0); TOTAL PROTEIN 6.8 g/dL (6.7-8.2)
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
== END 2023-02-26 14:50 | disposition home or self-care (01) ==
LOC: ED 09:07
DX: H91.92 Unspecified hearing loss, left ear (principal); F07.81 Postconcussional syndrome
CPT/HCPCS: 36415; 80053; 85025; 93005; 99283; 99284

== ENCOUNTER 2023-05-16 10:35 | Outpatient (CLI) | payer MEDICARE, OTHER ==
[2023-05-16 10:52] LABS: BASOPHILS % (AUTO) 0.7 %; EOSINOPHILS % (AUTO) 0.7 %; HCT - HEMATOCRIT 31.5 % (37.0-47.0); HGB - HEMOGLOBIN 9.3 g/dL (12.0-16.0); LYMPHOCYTES # (AUTO) 0.9 10^3/uL (1.5-3.5); MEAN CORPUSCULAR HEMOGLOBIN 23.4 pg (27.0-31.0); MEAN CORPUSCULAR HGB CONC 29.5 g/dL (32.0-36.0); MEAN CORPUSCULAR VOLUME 79.1 fL (81.0-99.0); MEAN PLATELET VOLUME 8.8 fL (7.9-10.8); MONOCYTES # (AUTO) 0.2 10^3/uL (0.0-1.0); NEUTROPHILS # (AUTO) 4.5 10^3/uL (1.5-6.6); NEUTROPHILS % (AUTO) 79.2 %; PLT - PLATELET COUNT 355 10^3/uL (130-450); RED BLOOD COUNT 3.98 10^6/uL (4.20-5.40); RED CELL DISTRIBUTION WIDTH 15.2 % (12.0-15.0); WHITE BLOOD COUNT 5.7 x10^3/uL (4.8-10.8)
[2023-05-16 11:13] LABS: % IRON SATURATION 3 % (20-50); IRON 14 ug/dL (28-170); TOTAL IRON BINDING CAPACITY 468 ug/dL (250-450); TRANSFERRIN 334 mg/dL (192-382)
== END 2023-05-16 10:36 | disposition home or self-care (01) ==
LOC: LAB 10:35
PROVIDERS: ATTEND Family Medicine
DX: R00.0 Tachycardia, unspecified (principal); R06.09 Other forms of dyspnea; R79.89 Other specified abnormal findings of blood chemistry
CPT/HCPCS: 36415; 82728; 83540; 84466; 85025

== ENCOUNTER 2023-08-06 08:00 | Outpatient (CLI) | payer MEDICARE, OTHER | END 2023-08-06 23:59 | disposition home or self-care (01) | LOC: LAB.WCP 08:00 | PROVIDERS: ATTEND Physician Assistant Medical | DX: N39.0 Urinary tract infection, site not specified (principal) | CPT/HCPCS: 87086 ==

== ENCOUNTER 2023-09-17 23:43 | Outpatient (CLI) | payer MEDICARE, OTHER | END 2023-09-17 23:44 | disposition critical access hospital (66) | LOC: EMS 23:43 | DX: F41.9 Anxiety disorder, unspecified (principal); S01.111A Laceration without foreign body of right eyelid and periocular area, initial encounter; W18.30XA Fall on same level, unspecified, initial encounter; Y92.008 Other place in unspecified non-institutional (private) residence as the place of occurrence of the external cause | CPT/HCPCS: A0425; A0429 ==

== ENCOUNTER 2023-09-18 00:01 | Emergency (ER) | payer MEDICARE, OTHER ==
[~2023-09-18 00:01] MED LIST: TETANUS/DIPHTHERIA/PERTUSSIS 0.5 ML SYRINGE IM ONE
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
[2023-09-18] MEDS ORDERED: ACETAMINOPHEN 325 MG TABLET PO STA (01:33)
--- NOTE | 2023-09-18 01:56 | CT Report ---
PROCEDURE: CERVICAL SPINE WO INDICATIONS: mechanical fall +etoh TECHNIQUE: Noncontrast 3 mm thick sections acquired from the skull base to the T4 level. Sagittal and coronal r eformats were then constructed. For radiation dose reduction, the following was used: automated exp osure control, adjustment of mA and/or kV according to patient size. COMPARISON: None. FINDINGS: Image quality: Excellent. Bones: No fractures or dislocations. Trace anterolisthesis C4-5. Moderate bilateral facet arthropat hy C3-4 and C4-5. Moderate disc degeneration C5-6 and C6-7. Prominent degeneration at the atlantodent al interval. Visualized superior ribs are intact. Soft tissues: Prevertebral soft tissues are normal in thickness. No paravertebral hematomas. No ap ical pneumothoraces. IMPRESSION: No acute, displaced fracture or traumatic subluxation. Mild disc and facet joint degeneration. Reviewed by: Yulia El MD on 09/18/2023 1:55 AM PDT Approved by: Yulia El MD on 09/18/2023 1:55 AM PDT Station ID: [id number]
--- NOTE | 2023-09-18 05:12 | ED Physician Documentation ---
History of Present Illness - Stated complaint Stated Complaint: ETOH/ANXIETY - Chief complaint Chief Complaint: Trauma Hd/Nk - History obtained from History obtained from: Patient, EMS - Additonal information Additional information: 68yF presents to the ED intoxicated with alcohol s/p fall in her dark basement tonight. patient unsure if she hit her head but does have laceration to R face. tdap not utd. no loc. endorses chronic neck pain. otherwise denies injury. 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 : None HEENT: None Psych: Anxiety Musculoskeletal: Osteoporosis, Chronic back pain Derm: None - Past Surgical History Past Surgical History: Yes /SENIOR DATABASE PROGRAMMER: Hysterectomy - Present Medications Home Medications: Ambulatory Orders Medication Instructions Recorded Confirmed LORazepam [Ativan] 0.5 mg PO BID 04/14/21 08/04/22 Acetaminophen with Codeine 1 tab ORAL Q6HR PRN 08/04/22 08/04/22 [Acetaminophen-Cod #3 Tablet] Acetaminophen/Cod 300/30 [Tylenol 1 each PO Q4-6H PRN #15 tablet 08/04/22 #3] - Allergies Allergies/Adverse Reactions: Allergies Allergy/AdvReac Type Severity Reaction Status Date / Time Beta-Blockers Allergy Severe lost Verified 02/26/23 09:23 (Beta-Adrenergic Bloc hearing Sulfa (Sulfonamide Allergy Severe Hives Verified 02/26/23 09:23 Antibiotics) cephalexin Allergy Unknown Verified 02/26/23 09:23 sulfamethoxazole Allergy Unknown Verified 02/26/23 09:23 [From Bactrim] trimethoprim [From Bactrim] Allergy Unknown Verified 02/26/23 09:23 - Social History Does the pt smoke?: No Smoking Status: Never smoker Does the pt drink ETOH?: Yes Does the pt have substance abuse?: No - Immunizations Immunizations are current?: Yes - POLST Patient has POLST: No PD ED PE NORMAL - Vitals Vital signs reviewed: Yes - General General: Alert and oriented X 3, No acute distress, Well developed/nourished, Other (clinically intoxicated) - HEENT HEENT: Atraumatic, PERRL, EOMI, Moist mucous membranes, Pharynx benign, Other (R suborbital face with horizontal irregular shallow laceration 3cm length) - Neck Neck: Other (midline discomfort to palpation) - Cardiac Cardiac: RRR - Respiratory Respiratory: No respiratory distress, Clear bilaterally - Abdomen Abdomen: Non tender, Non distended - Derm Derm: Normal color, Warm and dry, Other (laceration 3cm horizontal along R suborbital face) Results - Vitals Vitals: Vital Signs - 24 hr 09/18/23 09/18/23 09/18/23 00:07 02:28 04:15 Temperature 36.7 C Heart Rate 73 72 79 Respiratory 20 18 18 Rate Blood Pressure 121/74 126/74 O2 Saturation 100 98 95 Oxygen O2 Source Room air PD Medical Decision Making - ED course ED course: 68yF presents s/p fall with lac to the face. CT head, max facial and neck were negative for acute injury. d/w [facility] multi care technician Dr. Fenton who states the laceration in question is lateral and inferior enough that it does not likely affect the lacrimal system. Does not recommend primary closure since it might rip, pulling the eyelid down. Recommend aggressive lubrication and allowing it to granulate in. Plan to f/u outpatient plastics or primary care. d/w patient. return precautions given. Departure - Departure Disposition: 01 Home, Self Care Clinical Impression: Laceration of face, Fall from standing, Alcohol abuse Condition: Stable Instructions: Addiction Alcohol, ED Laceration All Comments: You were seen in the emergency department after a fall. Your CTs showed no injur ies from today. I spoke with an multi care technician regarding the cut near your eye and they recommended to leave it open and apply aphaphor or cera ve ointment daily, keeping well lubricated. You can follow up with your primary care provider or plastic surgery. Please follow-up with your primary care provider and return to the emergency department if you have any new or worsening symptoms or other concerns.
[2023-09-18 07:31] LABS: BASOPHILS % (AUTO) 0.4 %; EOSINOPHILS % (AUTO) 0.2 %; HCT - HEMATOCRIT 38.5 % (37.0-47.0); HGB - HEMOGLOBIN 12.7 g/dL (12.0-16.0); LYMPHOCYTES # (AUTO) 2.7 10^3/uL (1.5-3.5); MEAN CORPUSCULAR VOLUME 84.8 fL (81.0-99.0); MEAN PLATELET VOLUME 8.8 fL (7.9-10.8); MONOCYTES # (AUTO) 0.9 10^3/uL (0.0-1.0); MONOCYTES % (AUTO) 8.1 %; NEUTROPHILS # (AUTO) 7.2 10^3/uL (1.5-6.6); PLT - PLATELET COUNT 303 10^3/uL (130-450); RED BLOOD COUNT 4.54 10^6/uL (4.20-5.40); RED CELL DISTRIBUTION WIDTH 14.5 % (12.0-15.0); WHITE BLOOD COUNT 10.9 x10^3/uL (4.8-10.8)
[2023-09-18 07:41] LABS: MUDS CUTOFF CONCENTRATIONS CUTOFF CONC BELOW:
[2023-09-18 07:43] LABS: ALBUMIN 4.1 g/dL (3.2-5.5); ALBUMIN/GLOBULIN RATIO 1.6 (1.0-2.2); BILIRUBIN,TOTAL 0.4 mg/dL (0.2-1.0); CALCIUM 9.3 mg/dL (8.5-10.3); CREATININE 0.6 mg/dL (0.6-1.3); POTASSIUM 3.5 mmol/L (3.5-4.5); TOTAL PROTEIN 6.7 g/dL (6.4-8.9)
[2023-09-18 08:02] LABS: BENZODIAZEPINES SCREEN, URINE POSITIVE (NEGATIVE); COCAINE SCREEN URINE NEGATIVE (NEGATIVE); METHAMPHETAMINES SCREEN, URINE NEGATIVE (NEGATIVE); OPIATE SCREEN, URINE POSITIVE (NEGATIVE); THC CANNABINOID SCREEN, URINE NEGATIVE (NEGATIVE)
[2023-09-18 08:03] LABS: AMPHETAMINE SCREEN,URINE NEGATIVE (NEGATIVE); BARBITURATE SCREEN,UR NEGATIVE (NEGATIVE); METHADONE SCREEN, URINE NEGATIVE (NEGATIVE); OXYCODONE SCREEN, URINE NEGATIVE (NEGATIVE); PROPOXYPHENE SCREEN, URINE NEGATIVE (NEGATIVE); TRICYCLIC ANTIDEPRESSANT,URINE NEGATIVE (NEGATIVE)
--- NOTE | 2023-09-18 08:10 | ED Physician Documentation ---
ED Addendum - Addendum Addendum: 09/18/23 07:57 Patient signed out to me by Dr. Bui at shift change. Patient was seen overnight after a fall in the setting of alcohol use. Per Dr. Bui patient admitted to drinking 6 beers and taking a Tylenol with codeine. Patient was set for discharge and that when family arrived this morning they requested labs to be done as well as a urine drug screen to see if there is any other reasons that the patient would have fallen. When patient got up to go to the bathroom she also noticed some bruising on her back. Patient does have bruising to the lower back from her fall. She has been ambulating. Requesting an x-ray of her back which I will order. 09/18/23 08:29 Reviewed labs, x-ray results and urine drug screen with patient as well as with her daughter. Patient gave permission to speak about her information in front of daughter. Daughter is also requesting information for additional assistance in the home and have asked Ninfa RENEE to provide family with home health and Senior resources. Departure - Departure Disposition: 01 Home, Self Care Clinical Impression: Laceration of face, Fall from standing, Alcohol abuse, Contusion of lower back Condition: Stable Instructions: Addiction Alcohol, ED Laceration All Follow-Up: Taniya Altman MD [Physician No Access] - Ronan Hills MD [Provider Admit Priv/Credential] - Within 3 Days Comments: You were seen in the emergency department after a fall. Your CTs showed no injuries from today. I spoke with an [employer] loose end finder regarding the cut near your eye and they recommended to leave it open and apply aphaphor or cera ve ointment daily, keeping well lubricated. You can follow up with your primary care prov ider or plastic surgery. Please follow-up with your primary care provider and return to the emergency department if you have any new or worsening symptoms or other concerns. Dr. Nirmal Gonzalez Plastic surgeon [facility] [place] Forms: PCP List
--- NOTE | 2023-09-18 08:18 | XRAY Report ---
PROCEDURE: Lumbar Spine 2 View INDICATIONS: pain/bruising TECHNIQUE: 3 views of the lumbar spine were acquired. COMPARISON: None. FINDINGS: Bones: 5 [id number] vertebrae are present. There is normal bony alignment. Degenerative endpl ate changes are noted throughout lumbar spine. No vertebral body compression fractures. No suspiciou s bony lesions. Soft tissues: Overlying bowel gas pattern is normal. No suspicious soft tissue calcifications. IMPRESSION: Degenerative disc disease throughout lumbar spine. No acute compression fracture or spon dylolisthesis. No gross paraspinous soft tissue abnormalities. Reviewed by: Mark Garcia MD on 09/18/2023 8:17 AM PDT Approved by: Mark Garcia MD on 09/18/2023 8:17 AM PDT Station ID: [id number]
[2023-09-18 08:48] VITALS: BP 134/79; O2SAT 95
== END 2023-09-18 08:44 | disposition home or self-care (01) ==
LOC: EDUNIT# → ED 00:01
DX: S01.81XA Laceration without foreign body of other part of head, initial encounter (principal); S30.0XXA Contusion of lower back and pelvis, initial encounter; W19.XXXA Unspecified fall, initial encounter; F10.10 Alcohol abuse, uncomplicated; Z23 Encounter for immunization
CPT/HCPCS: 36415; 70450; 70486; 72100; 72125; 80053; 80306; 83690; 85025; 90471; 90715; 99284; A9270; 80320

== ENCOUNTER 2024-01-08 08:00 | Outpatient (CLI) | payer MEDICARE, OTHER | END 2024-01-08 23:59 | disposition home or self-care (01) | LOC: LAB.N 08:00 | PROVIDERS: ATTEND Registered Nurse | DX: L98.9 Disorder of the skin and subcutaneous tissue, unspecified (principal) | CPT/HCPCS: 87070; 87077; 87205 ==

== ENCOUNTER 2024-01-08 10:54 | Outpatient (CLI) | payer MEDICARE, OTHER ==
--- NOTE | 2024-01-08 18:25 | XRAY Report ---
PROCEDURE: Ankle 3+V RT INDICATIONS: RIGHT ANKLE JOINT PAIN TECHNIQUE: 3 views of the ankle were acquired. COMPARISON: None FINDINGS: Bones: No fractures or dislocations. Ankle mortise is normally aligned. No suspicious bony lesions . Soft tissues: Unremarkable without significant soft tissue swelling. No radiopaque foreign body. IMPRESSION: Unremarkable ankle radiographs Reviewed by: Nik Cobian MD on 01/08/2024 5:23 PM [place] Approved by: Nik Cobian MD on 01/08/2024 5:23 PM [place] Station ID: [id number]
== END 2024-01-08 10:55 | disposition home or self-care (01) ==
LOC: DI 10:54
PROVIDERS: ATTEND Registered Nurse
DX: M25.571 Pain in right ankle and joints of right foot (principal); L98.9 Disorder of the skin and subcutaneous tissue, unspecified
CPT/HCPCS: 87070; 87077; 87205

== ENCOUNTER 2024-01-31 10:08 | Outpatient (CLI) | payer MEDICARE, OTHER ==
[2024-01-31 10:30] LABS: BASOPHILS # (AUTO) 0.1 10^3/uL (0.0-0.1); BASOPHILS % (AUTO) 1.1 %; EOSINOPHILS # (AUTO) 0.2 10^3/uL (0.0-0.7); EOSINOPHILS % (AUTO) 2.8 %; HCT - HEMATOCRIT 36.6 % (37.0-47.0); HGB - HEMOGLOBIN 10.8 g/dL (12.0-16.0); LYMPHOCYTES % (AUTO) 32.8 %; MEAN CORPUSCULAR HEMOGLOBIN 23.2 pg (27.0-31.0); MEAN CORPUSCULAR HGB CONC 29.5 g/dL (32.0-36.0); MEAN CORPUSCULAR VOLUME 78.5 fL (81.0-99.0); MONOCYTES # (AUTO) 0.6 10^3/uL (0.0-1.0); MONOCYTES % (AUTO) 9.1 %; NEUTROPHILS # (AUTO) 3.3 10^3/uL (1.5-6.6); PLT - PLATELET COUNT 346 10^3/uL (130-450); RED BLOOD COUNT 4.66 10^6/uL (4.20-5.40); RED CELL DISTRIBUTION WIDTH 16.1 % (12.0-15.0); WHITE BLOOD COUNT 6.2 x10^3/uL (4.8-10.8)
[2024-01-31 10:49] LABS: ALBUMIN 4.3 g/dL (3.2-5.5); ALBUMIN/GLOBULIN RATIO 1.4 (1.0-2.2); ALKALINE PHOSPHATASE 110 IU/L (42-121); ALT ALANINE AMINOTRANSFERASE 10 IU/L (10-60); AST ASPARTATE AMINOTRANSFERASE 15 IU/L (10-42); BILIRUBIN,TOTAL 0.4 mg/dL (0.2-1.0); BUN - BLOOD UREA NITROGEN 11 mg/dL (6-20); CALCIUM 9.7 mg/dL (8.5-10.3); CARBON DIOXIDE - CO2 25 mmol/L (21-32); CHLORIDE 105 mmol/L (101-111); CHOL/HDL RATIO 3.3 (<4.4); CHOLESTEROL 198 mg/dL; CREATININE 0.8 mg/dL (0.6-1.3); GFR - MDRD 71 (>89); GLUCOSE 130 mg/dL (74-104); HDL CHOLESTEROL 60 mg/dL; LDL CHOLESTEROL,CALCULATED 88 mg/dL; LDL/HDL RATIO 1.5 (<4.4); POTASSIUM 3.7 mmol/L (3.5-4.5); SODIUM 137 mmol/L (135-145); TOTAL PROTEIN 7.3 g/dL (6.4-8.9); TRIGLYCERIDES 252 mg/dL (48-352); VLDL CHOLESTEROL 50 mg/dL
[2024-01-31 11:01] LABS: THYROID STIMULATING HORMONE 3.46 uIU/mL (0.34-5.60)
== END 2024-01-31 10:09 | disposition home or self-care (01) ==
LOC: LAB 10:08
PROVIDERS: ATTEND Family Medicine
DX: F07.81 Postconcussional syndrome (principal); F43.12 Post-traumatic stress disorder, chronic; M17.0 Bilateral primary osteoarthritis of knee; Z79.899 Other long term (current) drug therapy
CPT/HCPCS: 36415; 80053; 80061; 83721; 84443; 85025

== ENCOUNTER 2024-02-20 08:00 | Outpatient (CLI) | payer MEDICARE, OTHER | END 2024-02-20 23:59 | disposition home or self-care (01) | LOC: LAB.N 08:00 | PROVIDERS: ATTEND Nurse Practitioner | DX: N39.0 Urinary tract infection, site not specified (principal) | CPT/HCPCS: 87086; 87181 ==

== ENCOUNTER 2024-02-25 09:08 | Outpatient (CLI) | payer MEDICARE, OTHER ==
[2024-02-25 09:37] LABS: BILIRUBIN,URINE NEGATIVE (NEGATIVE); GLUCOSE, URINE (UA) NEGATIVE (NEGATIVE); KETONES,URINE (UA) NEGATIVE (NEGATIVE); LEUKOCYTE ESTERASE, URINE NEGATIVE (NEGATIVE); NITRITE,URINE NEGATIVE (NEGATIVE); OCCULT BLOOD,URINE NEGATIVE (NEGATIVE); PROTEIN,URINE NEGATIVE (NEGATIVE); UROBILINOGEN,URINE 0.2 (NORMAL) E.U./dL (NORMAL)
[2024-02-25 09:39] LABS: CLARITY,URINE CLEAR (CLEAR)
[2024-02-25 10:04] LABS: RBC,URINE 0-5 /HPF (0-5); WBC,URINE 0-3 /HPF (0-5)
[2024-02-25 10:05] LABS: BACTERIA,URINE Rare /HPF (None Seen); SQUAMOUS EPITHELIAL CELL,UR RARE Squamous (<= Few)
== END 2024-02-25 09:09 | disposition home or self-care (01) ==
LOC: LAB 09:08
PROVIDERS: ATTEND Family Medicine
DX: N39.0 Urinary tract infection, site not specified (principal)
CPT/HCPCS: 81001; 87086

== ENCOUNTER 2024-03-12 16:27 | Outpatient (CLI) | payer MEDICARE, OTHER ==
--- NOTE | 2024-03-12 17:45 | XRAY Report ---
Foot 3+V RT (Weight Bearing) HISTORY:: 68 years of age, RIGHT FOOT PAIN TECHNIQUE: Foot 3+V RT (Weight Bearing) COMPARISON: 07/31/2017. FINDINGS/IMPRESSION: Pes planus. Small ossification about the distal Achilles tendon, representing prior injury. No acute fracture or dislocation. Joint spaces are well maintained. Reviewed by: Summer Ruiz MD on 03/12/2024 5:44 PM PDT Approved by: Summer Ruiz MD on 03/12/2024 5:44 PM PDT Station ID: [id number]
== END 2024-03-12 16:28 | disposition home or self-care (01) ==
LOC: DI 16:27
PROVIDERS: ATTEND Podiatrist
DX: M21.41 Flat foot [pes planus] (acquired), right foot (principal); R93.6 Abnormal findings on diagnostic imaging of limbs

== ENCOUNTER 2024-06-01 08:00 | Outpatient (CLI) | payer MEDICARE, OTHER | END 2024-06-01 23:59 | disposition home or self-care (01) | LOC: LAB.N 08:00 | PROVIDERS: ATTEND Family Medicine | DX: L98.9 Disorder of the skin and subcutaneous tissue, unspecified (principal) | CPT/HCPCS: 87070; 87205 ==

== ENCOUNTER 2024-06-04 08:00 | Outpatient (CLI) | payer MEDICARE, OTHER ==
[2024-06-04 22:30] LABS: BACTERIAL VAGINOSIS DNA NEGATIVE (NEGATIVE); CANDIDA GLABRATA DNA NEGATIVE (NEGATIVE); CANDIDA GROUP DNA POSITIVE (NEGATIVE); CANDIDA KRUSEI DNA NEGATIVE (NEGATIVE); TRICHOMONAS VAGINALIS DNA NEGATIVE (NEGATIVE)
== END 2024-06-04 23:59 | disposition home or self-care (01) ==
LOC: LAB 08:00
PROVIDERS: ATTEND Physician Assistant
DX: N39.8 Other specified disorders of urinary system (principal); R35.0 Frequency of micturition
CPT/HCPCS: 81514; 87086

== ENCOUNTER 2024-07-08 08:00 | Outpatient (CLI) | payer MEDICARE, OTHER | END 2024-07-08 08:01 | disposition home or self-care (01) | LOC: LAB.R 08:00 | PROVIDERS: ATTEND Nurse Practitioner | DX: R21 Rash and other nonspecific skin eruption (principal) | CPT/HCPCS: 87070; 87205 ==

== ENCOUNTER 2024-07-19 11:51 | Outpatient (CLI) | payer MEDICARE, OTHER ==
[2024-07-19 12:22] LABS: ALBUMIN/GLOBULIN RATIO 1.3 (1.0-2.2); ALKALINE PHOSPHATASE 121 IU/L (42-121); ALT ALANINE AMINOTRANSFERASE 10 IU/L (10-60); AST ASPARTATE AMINOTRANSFERASE 16 IU/L (10-42); BILIRUBIN,TOTAL 0.3 mg/dL (0.2-1.0); BUN - BLOOD UREA NITROGEN 17 mg/dL (6-20); CALCIUM 9.4 mg/dL (8.5-10.3); CARBON DIOXIDE - CO2 26 mmol/L (21-32); CHLORIDE 104 mmol/L (101-111); CREATININE 0.7 mg/dL (0.6-1.3); GFR - MDRD 83 (>89); GLUCOSE 122 mg/dL (74-104); IRON < 10 ug/dL (50-212); POTASSIUM 3.5 mmol/L (3.5-4.5); SODIUM 138 mmol/L (135-145); TOTAL IRON BINDING CAPACITY 482 ug/dL (250-450); TRANSFERRIN 344 mg/dL (203-362)
[2024-07-19 12:35] LABS: THYROID STIMULATING HORMONE 2.03 uIU/mL (0.34-5.60)
[2024-07-19 12:43] LABS: FERRITIN 4.5 ng/mL (11.0-306.8)
[2024-07-19 12:56] LABS: ABSOLUTE RETICS # AUTO 0.045 10^6/uL (0.020-0.110); BASOPHILS # (AUTO) 0.1 10^3/uL (0.0-0.1); BASOPHILS % (AUTO) 1.3 %; EOSINOPHILS # (AUTO) 0.2 10^3/uL (0.0-0.7); EOSINOPHILS % (AUTO) 2.8 %; HCT - HEMATOCRIT 31.4 % (37.0-47.0); HGB - HEMOGLOBIN 9.2 g/dL (12.0-16.0); LYMPHOCYTES # (AUTO) 1.7 10^3/uL (1.5-3.5); LYMPHOCYTES % (AUTO) 31.8 %; MEAN CORPUSCULAR HEMOGLOBIN 22.1 pg (27.0-31.0); MEAN CORPUSCULAR HGB CONC 29.3 g/dL (32.0-36.0); MEAN CORPUSCULAR VOLUME 75.5 fL (81.0-99.0); MEAN PLATELET VOLUME 9.6 fL (7.9-10.8); MONOCYTES # (AUTO) 0.5 10^3/uL (0.0-1.0); NEUTROPHILS # (AUTO) 2.9 10^3/uL (1.5-6.6); NEUTROPHILS % (AUTO) 53.9 %; PLT - PLATELET COUNT 315 10^3/uL (130-450); RED BLOOD COUNT 4.16 10^6/uL (4.20-5.40); RED CELL DISTRIBUTION WIDTH 17.2 % (12.0-15.0); RETICULOCYTE COUNT % (AUTO) 1.07 % (0.5-2.3); WHITE BLOOD COUNT 5.3 x10^3/uL (4.8-10.8)
== END 2024-07-19 11:52 | disposition home or self-care (01) ==
LOC: LAB 11:51
PROVIDERS: ATTEND Family Medicine
DX: F41.9 Anxiety disorder, unspecified (principal); D64.9 Anemia, unspecified; R00.0 Tachycardia, unspecified; R06.09 Other forms of dyspnea; R79.89 Other specified abnormal findings of blood chemistry
CPT/HCPCS: 36415; 80053; 82607; 82728; 82746; 83540; 84443; 84466; 85025; 85045

== ENCOUNTER 2024-07-21 10:58 | Outpatient (CLI) | payer MEDICARE, OTHER | END 2024-07-21 10:59 | disposition home or self-care (01) | LOC: LAB 10:58 | PROVIDERS: ATTEND Nurse Practitioner | DX: R21 Rash and other nonspecific skin eruption (principal) | CPT/HCPCS: 36415; 86038 ==

== ENCOUNTER 2024-08-13 09:09 | Outpatient (CLI) | payer MEDICARE, OTHER ==
[2024-08-13 09:41] LABS: BASOPHILS # (AUTO) 0.1 10^3/uL (0.0-0.1); BASOPHILS % (AUTO) 1.4 %; EOSINOPHILS # (AUTO) 0.1 10^3/uL (0.0-0.7); EOSINOPHILS % (AUTO) 2.2 %; HCT - HEMATOCRIT 37.1 % (37.0-47.0); HGB - HEMOGLOBIN 10.5 g/dL (12.0-16.0); LYMPHOCYTES # (AUTO) 1.9 10^3/uL (1.5-3.5); MEAN CORPUSCULAR HEMOGLOBIN 22.7 pg (27.0-31.0); MEAN CORPUSCULAR HGB CONC 28.3 g/dL (32.0-36.0); MEAN CORPUSCULAR VOLUME 80.3 fL (81.0-99.0); MEAN PLATELET VOLUME 9.2 fL (7.9-10.8); MONOCYTES # (AUTO) 0.4 10^3/uL (0.0-1.0); MONOCYTES % (AUTO) 8.2 %; NEUTROPHILS # (AUTO) 2.6 10^3/uL (1.5-6.6); PLT - PLATELET COUNT 341 10^3/uL (130-450); RED BLOOD COUNT 4.62 10^6/uL (4.20-5.40); RED CELL DISTRIBUTION WIDTH 22.4 % (12.0-15.0)
[2024-08-13 09:48] LABS: SLIDE REVIEW? Indicated
[2024-08-13 10:09] LABS: CRP - C-REACTIVE PROTEIN < 0.5 mg/dL (<0.5)
[2024-08-13 10:18] LABS: PLATELET ESTIMATE, MANUAL NORMAL (130-450,000) (NORMAL); PLATELET MORPHOLOGY NORMAL APPEARANCE (NORMAL)
[2024-08-13 11:33] LABS: RHEUMATOID FACTOR NEGATIVE (Negative)
[2024-08-16 13:11] LABS: CYCLIC CITRULLINATED PEP IGG/A 6 units (0-19)
== END 2024-08-13 09:10 | disposition home or self-care (01) ==
LOC: LAB 09:09
PROVIDERS: ATTEND Family Medicine
DX: L30.9 Dermatitis, unspecified (principal); R53.83 Other fatigue
CPT/HCPCS: 36415; 82533; 85025; 85651; 86038; 86140; 86200; 86225; 86430